=== PATIENT | female | born 1995 | race Hispanic/Latino ===

== ENCOUNTER 2018-07-25 11:48 | Inpatient (IN) | payer MEDICAID | END 2018-07-27 19:10 | disposition home or self-care (01) | LOC: LDH 11:48 → WSH 07-26 20:45 | PROC: 10E0XZZ Delivery of Products of Conception, External Approach (ICD-10-PCS; principal; ~2018-07-25) | PROC: 3E033VJ Introduction of Other Hormone into Peripheral Vein, Percutaneous Approach (ICD-10-PCS; ~2018-07-25) | DX: O14.04 Mild to moderate pre-eclampsia, complicating childbirth (principal); Z37.0 Single live birth ==